=== PATIENT | male | born 1985 | race African-American/Black ===

== ENCOUNTER 2021-07-25 14:38 | Emergency (ER) | payer OTHER ==
[2021-07-25 14:59] VITALS: BP 109/87; PULSE 77; TEMP 97; BMI 38.0
[2021-07-25] MEDS ORDERED: BENZOIN/ALOE VERA/STORAX/TOLU 58 ML BOTTLE TP ONE (15:25)
[2021-07-25] MEDS ORDERED: BENZOIN/ALOE VERA/STORAX/TOLU 58 ML BOTTLE ONE (15:26)
== END 2021-07-25 15:52 | disposition home or self-care (01) ==
LOC: JERFT 14:38 → JER 14:38 → JERFT 15:52
DX: Z48.02 Encounter for removal of sutures (principal)
CPT/HCPCS: 99281-25